=== PATIENT | female | born 1965 | race Caucasian/White ===

== ENCOUNTER 2019-10-14 07:18 | Emergency (ER) | payer BC, OTHER ==
[~2019-10-14] VITALS: Ht 160 cm; Wt 113.4 kg
[2019-10-14 07:28] VITALS: BP 130/89
[2019-10-14 08:04] LABS: Basophils # (auto) 0.1 uL; Basophils % (auto) 1.4 % (0.0-2.0); Eosinophils # (auto) 0.2 uL; Eosinophils % (auto) 3.1 % (0.0-7.0); Hematocrit 38.3 % (36.0-46.0); Hemoglobin 12.8 g/dL (12.2-16.2); Lymphocytes # (auto) 1.8 uL; Lymphocytes % (auto) 25.6 % (10.0-50.0); Mean Corpuscular Hemoglobin 31.5 pg (28.0-32.0); Mean Corpuscular Hgb Conc. 33.5 g/dL (32.0-36.0); Mean Corpuscular Volume 94.2 fL (80.0-100.0); Monocytes # (auto) 0.6 uL; Monocytes % (auto) 8.4 % (0.0-12.0); Neutrophils # (auto) 4.4 uL; Neutrophils % (auto) 61.5 % (37.0-80.0); Platelet Count (auto) 129 10^3/uL (140-450); Red Blood Cells 4.07 10^6/uL (4.0-5.20); Red Cell Distribution Width 17.5 % (11.8-14.3); White Blood Cell 7.1 10^3/uL (4.4-10.8)
[2019-10-14 08:44] LABS: Albumin 2.8 g/dL (3.4-5.0); Anion Gap 7 (5-15); Blood Urea Nitrogen 6 mg/dL (7-18); Carbon Dioxide 26 mmol/L (21-32); Chloride 109 mmol/L (98-107); Glucose 100 mg/dL (74-106); Sodium 142 mmol/L (136-145)
[2019-10-14 08:50] LABS: Alanine Aminotransferase 68 U/L (13-56); Alkaline Phosphatase 205 U/L (45-117); Aspartate Aminotransferase 129 U/L (15-37); BUN/Creatinine Ratio 6.8; Bilirubin, Total 0.6 mg/dL (0.2-1.0); GFR African American 86 mL/min; GFR Non-African American 71 mL/min; Total Protein 7.4 g/dL (6.4-8.2)
== END 2019-10-14 11:44 | disposition left against medical advice (07) ==
LOC: EDBD 07:18 → ER 07:18
DX: F41.9 Anxiety disorder, unspecified (principal); F17.210 Nicotine dependence, cigarettes, uncomplicated
CPT/HCPCS: 36415; 80053; 84484; 85025; 93005

== ENCOUNTER 2020-06-20 14:22 | Inpatient (IN) | payer BC ==
[~2020-06-20] VITALS: Ht 182.9 cm; Wt 140.7 kg
[2020-06-20 16:25] LABS: Hematocrit 37.9 % (36.0-46.0); Hemoglobin 12.7 g/dL (12.2-16.2); Red Blood Cells 3.64 10^6/uL (4.0-5.20)
[2020-06-20 16:27] LABS: Mean Corpuscular Hgb Conc. 33.6 g/dL (32.0-36.0); Mean Corpuscular Volume 104.3 fL (80.0-100.0); Platelet Count (auto) 205 10^3/uL (140-450); White Blood Cell 13.2 10^3/uL (4.4-10.8)
[2020-06-20 16:29] LABS: Red Cell Distribution Width 22.2 % (11.8-14.3)
[2020-06-20 16:31] LABS: Basophils % (manual) 0 (0.0-2.0); Blast Cells 0; Metamyelocytes % 0; Myelocytes % 0; Promyelocytes % 0; Reactive Lymphocytes 0
[2020-06-20 16:50] LABS: Albumin 1.9 g/dL (3.4-5.0); Anion Gap 13 (5-15); Blood Alcohol < 3.0 mg/dL (0-5); Blood Urea Nitrogen 13 mg/dL (7-18); Calcium 8.3 mg/dL (8.5-10.1); Carbon Dioxide 22 mmol/L (21-32); Chloride 95 mmol/L (98-107); Glucose 75 mg/dL (74-106); Sodium 130 mmol/L (136-145)
[2020-06-20 16:54] LABS: Alanine Aminotransferase 112 U/L (13-56); Alkaline Phosphatase 419 U/L (45-117); Aspartate Aminotransferase 306 U/L (15-37); BUN/Creatinine Ratio 10.3; Bilirubin, Total 20.8 mg/dL (0.2-1.0); GFR African American 57 mL/min; GFR Non-African American 47 mL/min; Total Protein 6.2 g/dL (6.4-8.2)
[2020-06-20 17:01] LABS: Potassium 2.9 mmol/L (3.5-5.1)
[2020-06-20] MEDS ORDERED: POTASSIUM EFFERVESENT TAB 25 MEQ PO ONE (17:30)
[2020-06-20 18:12] LABS: Band Neutrophils % (manual) 3; Eosinophils % (manual) 3 (0-7); Lymphocytes % (manual) 7 (10.0-50.0); Monocytes % (manual) 4 (0-12)
[2020-06-20] MEDS ORDERED: ONDANSETRON HCL 4 MG/2 ML VIAL IV ONE (23:30)
[2020-06-20] MEDS ORDERED: MORPHINE SULFATE 4 MG/ML SYR/VIAL IV ONE (23:30)
[2020-06-20] MEDS ORDERED: SODIUM CHLORIDE 0.9% 1,000 ML IV ONE (23:30)
[2020-06-20 23:36] LABS: Amylase 26 U/L (25-115); Lipase 181 U/L (73-393)
[2020-06-21] MEDS ORDERED: NITROGLYCERIN 0.4 MG SL TAB SL PRN (03:15)
[2020-06-21] MEDS ORDERED: DOCUSATE SOD 100 MG CAP PO PRN (03:15)
[2020-06-21] MEDS: SODIUM CHLORIDE 0.9% 1,000 ML IV SCH ×2 (03:25→21:11)
[2020-06-21] MEDS: cefTRIAXone 1GM/50ML D5W 50 ML IV SCH ×2 (03:43→09:18)
[2020-06-21] MEDS: MORPHINE SULF INJ 2 MG/ML SYRINGE 1ML IV PRN (03:45)
[2020-06-21] MEDS: ONDANSETRON HCL 4 MG/2 ML VIAL IV PRN (03:46)
--- NOTE | 2020-06-21 04:25 | NUR ---
pt got to floor from ED via bed
[2020-06-21 04:48] LABS: Basophils # (auto) 0.1 10 ^3/uL (0-0.2); Basophils % (auto) 0.6 % (0.0-2.0); Eosinophils # (auto) 0.1 10 ^3/uL (0-0.8); Eosinophils % (auto) 0.9 % (0.0-7.0); Hematocrit 35.2 % (36.0-46.0); Hemoglobin 11.9 g/dL (12.2-16.2); Lymphocytes # (auto) 1.1 10 ^3/uL (0.4-5.4); Lymphocytes % (auto) 7.4 % (10.0-50.0); Mean Corpuscular Hemoglobin 35.2 pg (28.0-32.0); Mean Corpuscular Hgb Conc. 33.9 g/dL (32.0-36.0); Monocytes # (auto) 0.9 10 ^3/uL (0-1.3); Monocytes % (auto) 6.2 % (0.0-12.0); Neutrophils # (auto) 12.8 10 ^3/uL (1.6-8.6); Neutrophils % (auto) 84.9 % (37.0-80.0); Nucleated Red Blood Cells % 0.6 %; Platelet Count (auto) 195 10^3/uL (140-450); Red Blood Cells 3.38 10^6/uL (4.0-5.20); White Blood Cell 15.1 10^3/uL (4.4-10.8)
[2020-06-21 04:49] VITALS: BP 110/72
[2020-06-21 04:49] LABS: Red Cell Distribution Width 21.8 % (11.8-14.3)
[2020-06-21 05:08] VITALS: BP 110/72
[2020-06-21 05:09] LABS: Albumin 1.8 g/dL (3.4-5.0); Calcium 7.9 mg/dL (8.5-10.1); Potassium 3.5 mmol/L (3.5-5.1)
[2020-06-21 05:13] LABS: BUN/Creatinine Ratio 9.2; Total Protein 5.6 g/dL (6.4-8.2)
[2020-06-21] MEDS: metroNIDAZOLE 500MG/100ML 100 ML IV SCH ×3 (05:32→21:12)
--- NOTE | 2020-06-21 06:28 | NUR ---
spoke with hospitalist regarding pt's pain med, new order received.
--- NOTE | 2020-06-21 07:26 | NUR ---
closing note endorsed care to day RN, no sign of pain/distress at this time
[2020-06-21 09:00] VITALS: BP 107/61
[2020-06-21] MEDS: ENOXAPARIN SOD 40 MG/0.4 ML SYRINGE SC SCH (09:17)
[2020-06-21] MEDS ORDERED: PANTOPRAZOLE 40 MG/10 ML VIAL INJ IV SCH (10:00)
[2020-06-21 15:09] VITALS: BP 107/61
[2020-06-21 17:00] VITALS: BP 117/58
--- NOTE | 2020-06-21 19:30 | NUR ---
Opening Shift Note Assumed care of patient,resting in bed with eyes closed. No S/S of distress/SOB or pain. Will continue to monitor for changes Q1hr and PRN.
[2020-06-21] MEDS: PANTOPRAZOLE 40 MG/10 ML VIAL INJ IV SCH (21:12)
[2020-06-21 22:00] VITALS: BP 121/74
[2020-06-22 05:00] VITALS: BP 116/70
[2020-06-22] MEDS: metroNIDAZOLE 500MG/100ML 100 ML IV SCH ×3 (05:27→21:22)
[2020-06-22] MEDS: MORPHINE SULF INJ 2 MG/ML SYRINGE 1ML IV PRN ×3 (05:28→21:23)
[2020-06-22 05:29] LABS: Hematocrit 30.8 % (36.0-46.0); Hemoglobin 10.5 g/dL (12.2-16.2); Mean Corpuscular Hemoglobin 35.4 pg (28.0-32.0); Mean Corpuscular Hgb Conc. 34.2 g/dL (32.0-36.0); Mean Corpuscular Volume 103.4 fL (80.0-100.0); Platelet Count (auto) 180 10^3/uL (140-450); Red Blood Cells 2.97 10^6/uL (4.0-5.20); White Blood Cell 12.5 10^3/uL (4.4-10.8)
[2020-06-22 05:31] LABS: Red Cell Distribution Width 21.4 % (11.8-14.3)
[2020-06-22 05:33] LABS: Basophils % (manual) 0 (0.0-2.0); Blast Cells 0; Metamyelocytes % 0; Myelocytes % 0; Promyelocytes % 0; Reactive Lymphocytes 0
[2020-06-22 05:37] LABS: INR 1.36 (0.9-1.15)
[2020-06-22 05:50] LABS: Albumin 1.7 g/dL (3.4-5.0); Calcium 7.4 mg/dL (8.5-10.1)
[2020-06-22 05:54] LABS: BUN/Creatinine Ratio 9.6; Bilirubin, Total 21.2 mg/dL (0.2-1.0)
--- NOTE | 2020-06-22 06:52 | NUR ---
pt developed skin tears on her buttocks, pictures taken, for wound consult
--- NOTE | 2020-06-22 07:30 | NUR ---
closing note endorsed care to day RN, no distress/ pain noted at this time
[2020-06-22 08:37] VITALS: BP 105/61
[2020-06-22 09:05] LABS: Band Neutrophils % (manual) 4; Eosinophils % (manual) 1 (0-7); Lymphocytes % (manual) 11 (10.0-50.0); Monocytes % (manual) 1 (0-12)
[2020-06-22] MEDS ORDERED: cefTRIAXone 1GM/50ML D5W 50 ML IV ONE (10:30)
[2020-06-22] MEDS: PANTOPRAZOLE 40 MG/10 ML VIAL INJ IV SCH ×2 (10:32→21:23)
[2020-06-22] MEDS: ENOXAPARIN SOD 40 MG/0.4 ML SYRINGE SC SCH (10:33)
--- NOTE | 2020-06-22 11:15 | NUR ---
WOUND CARE NOTE: WOUND CARE IN TO SEE PATIENT PER WOUND CARE REQUEST. PATIENT ADMITTED TO [facility] FOR ACUTE ABDOMINAL PAIN. BEDSIDE NURSE NOTED SKIN INTEGRITY ISSUE UPON ADMISSION. PHOTOGRAPH TAKEN AT THAT TIME FOR REFERENCE. PATIENT DOMINGO SCORE IS 18. PATIENT NOTED TO HAVE SKIN TEARS BILATERAL BUTTOCKS. ZGUARD MOISTURE BARRIER CREAM APPLIED TO BILATERAL BUTTOCKS. RECOMMEND: FREQUENT Q2HOUR REPOSITIONING CONDITION PERMITS. FREQUENT REDISTRIBUTE PRESSURE UTILIZING PILLOWS AND WEDGES. BID/PRN APPLICATION OF MOISTURE BARRIER CREAM. SKIN/WOUND CARE PLAN. CONTINUED MONITORING BY WOUND CARE TEAM. Addendum: 06/22/20 at 1507 by SHELBIE MARVIN RN RN Amended: Links added.
[2020-06-22] MEDS ORDERED: POTASSIUM CHLORIDE 8 MEQ TAB PO ONE (11:45)
[2020-06-22] MEDS: Ensure HIGH Protein Chocolate 8oz Bottle PO SCH ×2 (12:00→18:00)
--- NOTE | 2020-06-22 12:05 | NUR ---
Spoke to patient's daughter after password provided, updated on POC. Cont care
[2020-06-22] MEDS: SODIUM CHLORIDE 0.9% 1,000 ML IV SCH (12:35)
[2020-06-22 13:06] VITALS: BP 115/64
[2020-06-22 13:14] LABS: Hepatitis B Surface Antibody Negative
[2020-06-22 13:43] LABS: Hepatitis A Total Antibody Negative
[2020-06-22 15:28] LABS: Hepatitis C Antibody Negative (Negative)
--- NOTE | 2020-06-22 15:53 | NUR ---
Assessment Regarding social service consult for heavy ETOH use. Patient refused resources stating she stop drinking alcohol 3 weeks ago. Patient is a 54-year-old female who is alert and oriented. Prior to admission patient lived with family and functioned independently.Per patient she does not have any need for medical equipment now. Per patient she will return home to her prior living arrangements post discharge and family will transport home. Patient verbalize understanding d/c plan. Addendum: 06/22/20 at 1556 by CAITLIN ALANIS Amended: Links added.
[2020-06-22 16:37] VITALS: BP 105/59
[2020-06-22 18:43] LABS: Calcium 7.8 mg/dL (8.5-10.1); Potassium 3.2 mmol/L (3.5-5.1)
[2020-06-22 18:45] LABS: BUN/Creatinine Ratio 10.2
--- NOTE | 2020-06-22 20:35 | NUR ---
ULTRASOUND AT BEDSIDE
[2020-06-22 22:00] VITALS: BP 124/71
--- NOTE | 2020-06-23 02:38 | NUR ---
PATIENT COMFORTABLE IN BED, NO COMPLAINTS.
[2020-06-23 05:00] VITALS: BP 106/66
[2020-06-23 05:58] LABS: Hematocrit 30.1 % (36.0-46.0); Hemoglobin 10.3 g/dL (12.2-16.2); Mean Corpuscular Hemoglobin 35.5 pg (28.0-32.0); Mean Corpuscular Hgb Conc. 34.3 g/dL (32.0-36.0); Mean Corpuscular Volume 103.5 fL (80.0-100.0); Platelet Count (auto) 178 10^3/uL (140-450); Red Blood Cells 2.91 10^6/uL (4.0-5.20)
[2020-06-23 06:09] LABS: Red Cell Distribution Width 21.9 % (11.8-14.3)
[2020-06-23 06:10] LABS: Basophils % (manual) 0 (0.0-2.0); Blast Cells 0; Myelocytes % 0; Promyelocytes % 0; Reactive Lymphocytes 0
[2020-06-23 06:12] LABS: Albumin 1.7 g/dL (3.4-5.0); Calcium 7.5 mg/dL (8.5-10.1)
[2020-06-23 06:16] LABS: BUN/Creatinine Ratio 11.8; Bilirubin, Total 22.5 mg/dL (0.2-1.0); Total Protein 5.1 g/dL (6.4-8.2)
[2020-06-23 06:20] LABS: Potassium 2.9 mmol/L (3.5-5.1)
[2020-06-23] MEDS: SODIUM CHLORIDE 0.9% 1,000 ML IV SCH ×2 (06:32→12:00)
--- NOTE | 2020-06-23 06:38 | NUR ---
PAGED HOSPITALIST CRITICAL POTASSIUM LAB VALUE OF 2.9
[2020-06-23] MEDS: metroNIDAZOLE 500MG/100ML 100 ML IV SCH (06:56)
[2020-06-23 07:03] LABS: Band Neutrophils % (manual) 1; Eosinophils % (manual) 8 (0-7); Lymphocytes % (manual) 12 (10.0-50.0); Metamyelocytes % 1; Monocytes % (manual) 4 (0-12)
[2020-06-23] MEDS ORDERED: POTASSIUM CHL 20 Meq TABLET PO ONE ×2 (07:15→13:15)
--- NOTE | 2020-06-23 07:20 | NUR ---
CLOSING NOTE- NOC SHIFT ENDORSED PATIENT CARE TO DAY SHIFT NURSE ASHLEY SUAREZ. PATIENT IS RESTING COMFORTABLE. NO S/SX OF DISTRESS, SOB OR PAIN.
[2020-06-23] MEDS: Ensure HIGH Protein Chocolate 8oz Bottle PO SCH ×3 (08:00→18:00)
[2020-06-23 09:00] VITALS: BP 118/69
[2020-06-23] MEDS: PANTOPRAZOLE 40 MG/10 ML VIAL INJ IV SCH ×2 (09:20→23:09)
[2020-06-23] MEDS: cefTRIAXone 1GM/50ML D5W 50 ML IV SCH (09:21)
[2020-06-23] MEDS: ENOXAPARIN SOD 40 MG/0.4 ML SYRINGE SC SCH (09:21)
--- NOTE | 2020-06-23 09:26 | NUR ---
GI at bedside Dr. Barrera at bedside. Aware of patients status and abdominal pain. New orders received. Will continue to monitor.
[2020-06-23] MEDS: MORPHINE SULF INJ 2 MG/ML SYRINGE 1ML IV PRN (09:46)
--- NOTE | 2020-06-23 09:46 | NUR ---
Refused to turn Assessing patients skin tear to the sacrum. Patient fully turned to her side for a brief moment. Patient is refusing to stay turned to relieve pressure, states "I'm not going to turn, I'm not going to be uncomfortable." Patient educated on importance of turning q2 hours, skin care and wound prevention. Patient verbalized understanding but continues to refuse. Will continue to monitor.
--- NOTE | 2020-06-23 11:26 | NUR ---
at bedside. Dr. Lane at bedside, aware of patients status including the pitting edema and abnormal labs. New orders received, will carry out. Will continue to monitor.
[2020-06-23 13:00] VITALS: BP 117/70
[2020-06-23] MEDS ORDERED: THIAMINE HCL 100 MG TAB PO ONE (13:15)
[2020-06-23] MEDS ORDERED: FUROSEMIDE 40 MG/4 ML VIAL IV ONE (13:15)
[2020-06-23] MEDS ORDERED: MULTIPLE VITAMINS W/ MINERALS TAB PO ONE (13:15)
[2020-06-23 17:00] VITALS: BP 111/68
--- NOTE | 2020-06-23 19:15 | NUR ---
Opening shift note Assumed care of patient from day shift RNPatito. Patient A&Ox4, respirations even and non-labored at this time. STEAM BLOCKER bedside, assisted with turning/cleaning/bathing patient and linen/gown change. Patient repositioned for comfort. Discussed POC, ambulating, skin care/risks of not using the BSC, and to call for assistance in which the patient verbalized understanding. Bed in lowest locked position with 2 side rails up, call light within reach, safety precautions in place. Will continue to monitor Q1hr and PRN.
[2020-06-23 22:00] VITALS: BP 110/66
--- NOTE | 2020-06-23 23:00 | NUR ---
Patient incontinent of urine Patient stated that she was unable to use the call light in time. Bathed and changed linens, Z-guard applied to irritated skin on buttocks. Discussed risks/benefits of a Still catheter with the patient who stated that she will attempt to call for a bedpan. Patient further stated that she will attempt to use the BSC and ambulate the following day.
[2020-06-24 05:00] VITALS: BP 112/68
[2020-06-24 06:07] LABS: Hemoglobin 10.5 g/dL (12.2-16.2); Platelet Count (auto) 182 10^3/uL (140-450)
[2020-06-24 06:10] LABS: Hematocrit 29.8 % (36.0-46.0); Mean Corpuscular Hemoglobin 35.9 pg (28.0-32.0); Mean Corpuscular Hgb Conc. 35.1 g/dL (32.0-36.0); Mean Corpuscular Volume 102.1 fL (80.0-100.0); Red Blood Cells 2.92 10^6/uL (4.0-5.20); White Blood Cell 9.4 10^3/uL (4.4-10.8)
--- NOTE | 2020-06-24 06:26 | NUR ---
Patient resting Respirations even and non-labored without s/s of distress at this time.
[2020-06-24 06:38] LABS: Albumin 1.6 g/dL (3.4-5.0); BUN/Creatinine Ratio 14.3; Bilirubin, Direct 19.1 mg/dL (0-0.2); Bilirubin, Total 22.8 mg/dL (0.2-1.0); Calcium 7.6 mg/dL (8.5-10.1); Magnesium 2.3 mg/dL (1.6-2.6)
[2020-06-24 06:41] LABS: Potassium 2.8 mmol/L (3.5-5.1)
--- NOTE | 2020-06-24 06:43 | NUR ---
Critical lab Potassium 2.8 Will notify hospitalist.
[2020-06-24 06:44] LABS: Red Cell Distribution Width 21.6 % (11.8-14.3)
[2020-06-24 06:45] LABS: Basophils % (manual) 0 (0.0-2.0); Blast Cells 0; Promyelocytes % 0; Reactive Lymphocytes 0
--- NOTE | 2020-06-24 06:47 | NUR ---
Hospitalist returned call Order: Klor-con 40 Meq PO, one time Order entered.
[2020-06-24] MEDS ORDERED: POTASSIUM CHL 20 Meq TABLET PO ONE ×2 (07:00→12:15)
[2020-06-24 07:42] LABS: Band Neutrophils % (manual) 2; Eosinophils % (manual) 6 (0-7); Lymphocytes % (manual) 7 (10.0-50.0); Metamyelocytes % 3; Monocytes % (manual) 4 (0-12); Myelocytes % 1
[2020-06-24 07:42] LABS: Hepatitis B Surface Antigen Negative (Negative)
[2020-06-24 07:43] LABS: Hepatitis B Core Total AB Negative
[2020-06-24] MEDS: Ensure HIGH Protein Chocolate 8oz Bottle PO SCH ×3 (08:00→18:00)
--- NOTE | 2020-06-24 08:00 | NUR ---
Opening Shift Note Assumed care of patient, awake and alert. Bed set to lowest position side rails up x2 and call light placed within the patient's reach. No S/S of distress/SOB or pain. Instructed on POC and to call for assist PRN, will continue to monitor for changes Q1hr and PRN.
[2020-06-24 09:00] VITALS: BP 110/68
--- NOTE | 2020-06-24 09:00 | NUR ---
Urine Sample Urine sample sent to lab. Pending results.
[2020-06-24 09:41] LABS: Urine Amorphous Crystal MOD /hpf (None Seen); Urine Bacteria MOD /hpf (None Seen); Urine Blood 3+ /uL (Negative); Urine Specific Gravity 1.016 (1.001-1.035); Urine WBC 309 /hpf (0 - 5)
[2020-06-24] MEDS: ENOXAPARIN SOD 40 MG/0.4 ML SYRINGE SC SCH (09:46)
[2020-06-24] MEDS: THIAMINE HCL 100 MG TAB PO SCH (09:46)
[2020-06-24] MEDS: MULTIPLE VITAMINS W/ MINERALS TAB PO SCH (09:47)
[2020-06-24] MEDS: PANTOPRAZOLE 40 MG/10 ML VIAL INJ IV SCH ×2 (09:48→22:04)
[2020-06-24] MEDS: SODIUM CHLORIDE 0.9% 1,000 ML IV SCH (09:48)
--- NOTE | 2020-06-24 10:57 | NUR ---
Pt. Refusing to Reposition Pt. was educated on the importance of repositioning every 2 hours. Pt. verbalized understanding and refused to reposition. Addendum: 06/24/20 at 1059 by ANALIA HUNTER RN RN Amended: Links added.
--- NOTE | 2020-06-24 12:08 | NUR ---
at bedside MD Lane at bedside, aware of patient's status including labs, vs, bp, edema. New orders received to dc IV fluids, klor con 20meq po once now. MD aware patient has been refusing turning. Will cont to monitor
[2020-06-24 13:00] VITALS: BP 108/59
--- NOTE | 2020-06-24 15:13 | NUR ---
ss consult Per ss consult needs pcp. Sasha Alcocer to see patient today for PCP information. Addendum: 06/24/20 at 1514 by Sasha ALANIS Amended: Links added.
--- NOTE | 2020-06-24 16:34 | NUR ---
Patient has been having multiple incontinent episodes of urine throughout the day. Pt requesting to be changed again at this time. Patient able to turned for a brief moment to be cleaned but goes back to laying completely. Skin tear to sacrum is noted worsening and small bleeding noted from tear at this time. Zguard applied. Patient encouraged, again, to turn and repositioned q2hr and prn but she continues to refuse all day despite knowledge of skin breakdown and multiple efforts to try to get pressure areas off loaded. Patient back laying on her back and refuses to have pressure areas off loaded on pillows. Cont care, admission discharge rnmaria del carmen Padilla made aware.
[2020-06-24 17:00] VITALS: BP 112/69
--- NOTE | 2020-06-24 17:00 | NUR ---
Attempted to start new IV due to current IV was inserted 06/20 but after multiple failed attempts pt refusing at this time. Cont current IV at this time, flushed and is patent.
--- NOTE | 2020-06-24 18:45 | NUR ---
Partial linen changed, pt incontinent of urine. Zguard applied to sacrum. Pt continues to refuse turning despite education given on skin and wound care. No bleeding noted to sacral tear at this time. Will endorse care to oncoming rn.
--- NOTE | 2020-06-24 19:01 | NUR ---
Patient care endorsed to Kinsey joyce. Patient laying supine in bed no acute distress or sob noted. Call light within reach.
[2020-06-24 22:00] VITALS: BP 114/66
[2020-06-25 05:00] VITALS: BP 121/67
[2020-06-25 07:17] LABS: Hemoglobin 11.2 g/dL (12.2-16.2); Platelet Count (auto) 185 10^3/uL (140-450)
[2020-06-25 07:21] LABS: Hematocrit 32.5 % (36.0-46.0); Mean Corpuscular Hemoglobin 35.3 pg (28.0-32.0); Mean Corpuscular Hgb Conc. 34.3 g/dL (32.0-36.0); Mean Corpuscular Volume 102.9 fL (80.0-100.0); Red Blood Cells 3.16 10^6/uL (4.0-5.20); White Blood Cell 9.7 10^3/uL (4.4-10.8)
[2020-06-25 07:34] LABS: Red Cell Distribution Width 21.9 % (11.8-14.3)
[2020-06-25 07:35] LABS: Basophils % (manual) 0 (0.0-2.0); Blast Cells 0; Myelocytes % 0; Promyelocytes % 0; Reactive Lymphocytes 0
[2020-06-25 07:36] LABS: Albumin 1.6 g/dL (3.4-5.0)
[2020-06-25 07:40] LABS: BUN/Creatinine Ratio 16.1; Bilirubin, Total 23.6 mg/dL (0.2-1.0); Total Protein 5.2 g/dL (6.4-8.2)
[2020-06-25 07:42] LABS: Cholesterol 107 mg/dL (< 200); HDL Cholesterol 12 mg/dL (40-59); LDL Cholesterol 114 mg/dL (< 100); Triglycerides 298 mg/dL (< 150)
[2020-06-25 07:55] LABS: Potassium 2.9 mmol/L (3.5-5.1)
[2020-06-25] MEDS: MULTIPLE VITAMINS W/ MINERALS TAB PO SCH (08:13)
[2020-06-25] MEDS: ENOXAPARIN SOD 40 MG/0.4 ML SYRINGE SC SCH (08:14)
[2020-06-25] MEDS: THIAMINE HCL 100 MG TAB PO SCH (08:14)
[2020-06-25 08:15] LABS: Band Neutrophils % (manual) 2; Eosinophils % (manual) 5 (0-7); Lymphocytes % (manual) 7 (10.0-50.0); Metamyelocytes % 1; Monocytes % (manual) 7 (0-12)
[2020-06-25] MEDS: PANTOPRAZOLE 40 MG/10 ML VIAL INJ IV SCH ×2 (08:15→21:42)
[2020-06-25] MEDS: Ensure HIGH Protein Chocolate 8oz Bottle PO SCH ×3 (08:15→18:45)
[2020-06-25] MEDS: MORPHINE SULF INJ 2 MG/ML SYRINGE 1ML IV PRN ×3 (08:24→21:44)
--- NOTE | 2020-06-25 08:36 | NUR ---
CRITICAL POTASSIUM 2.[address] BILLY
[2020-06-25 09:00] VITALS: BP 122/74
[2020-06-25] MEDS ORDERED: POTASSIUM CHL 20 Meq TABLET PO ONE (11:15)
--- NOTE | 2020-06-25 11:33 | NUR ---
new order for 20 meq potassium
[2020-06-25 13:00] VITALS: BP 109/72
[2020-06-25] MEDS ORDERED: SOD CHL 0.9%/ KCL 20MEQ 1,000 ML IV SCH (13:15)
[2020-06-25 14:07] LABS: INR 1.49 (0.9-1.15)
--- NOTE | 2020-06-25 14:30 | NUR ---
dr quintana bedside new orders to be carried out
--- NOTE | 2020-06-25 16:20 | NUR ---
Trevizo catheter insertion Patient assessed and determined to be in need of trevizo catheter 300 CC DARK NEELAM URINE DRAINED. Order obtained from MD. Patient educated on catheter and reason for insertion. All questions answered. Trevizo catheter 16 guage Nepali inserted with clean sterile technique. Patient tolerated well.
--- NOTE | 2020-06-25 16:21 | NUR ---
URINE SAMPLE SENT TO LAB PER DR PLATT ORDER
[2020-06-25] MEDS: POTASSIUM EFFERVESENT TAB 25 MEQ GT SCH ×2 (16:29→23:30)
[2020-06-25] MEDS: DOPamine 1600MCG/ML D5W 250 ML IV SCH (16:32)
[2020-06-25 16:39] LABS: Protein, Urine 56.3 mg/dL (0.0-11.9)
[2020-06-25 16:44] LABS: Creatinine, Urine 90 mg/dL (30.0-125.0); Sodium Urine 20 mmol/L (40-220)
[2020-06-25 16:59] LABS: % Iron Saturation 88.6 % (15-50)
[2020-06-25 17:00] VITALS: BP 122/62
[2020-06-25] MEDS: OCTREOTIDE ACETATE 100 MCG/ML VL SUBCUT SCH ×2 (18:44→21:43)
[2020-06-25] MEDS: SOD CHL 0.9%/ KCL 20MEQ 1,000 ML IV SCH (18:44)
--- NOTE | 2020-06-25 18:45 | NUR ---
IV insertion IV access obtained, via clean sterile technique by inserting 22 gauge catheter at after LEFT WRIST attempt(s). IV secured properly. No trauma to site. Patient tolerated well. NOTE:
--- NOTE | 2020-06-25 20:00 | NUR ---
ASSUMED CARE, PT. AWAKE, NOT IN DISTRESS.
[2020-06-25 22:00] VITALS: BP 121/71
--- NOTE | 2020-06-25 22:00 | NUR ---
pt. t- 100.5, cooling measures applied, blanket removed, to keep monitor. Addendum: 06/25/20 at 2328 by Theresa Genao RN above note, not on this pt.
--- NOTE | 2020-06-25 22:47 | NUR ---
pt. t- 98.2 Addendum: 06/25/20 at 2328 by Theresa Genao RN above note. not in this pt.
[2020-06-26] VITALS (9 sets, daily range): BP systolic 76–124; BP diastolic 43–79
[2020-06-26] MEDS: SOD CHL 0.9%/ KCL 20MEQ 1,000 ML IV SCH (04:18)
[2020-06-26] MEDS: OCTREOTIDE ACETATE 100 MCG/ML VL SUBCUT SCH ×3 (05:40→21:26)
[2020-06-26 06:19] LABS: Albumin 1.7 g/dL (3.4-5.0); Calcium 8.5 mg/dL (8.5-10.1); Magnesium 2.2 mg/dL (1.6-2.6)
[2020-06-26 06:32] LABS: BUN/Creatinine Ratio 16.9; Bilirubin, Direct 20.7 mg/dL (0-0.2); Bilirubin, Total 24.7 mg/dL (0.2-1.0); Total Protein 5.5 g/dL (6.4-8.2)
--- NOTE | 2020-06-26 07:30 | NUR ---
Opening Shift Note Assumed care of patient, awake and alert. No S/S of distress/SOB. Patient is NPO awaiting liver biopsy this morning. Patient states pain at left wrist IV site, + swelling, - redness, patient states, "burning senstaiton", IV rate lowered, elevated left arm, will continue to monitor IV site. Patient declined new IV site insertion. Instructed on POC and to call for assist PRN, will continue to monitor for changes Q1hr and PRN. Bed is locked and in lowest position. Call light within reach.
[2020-06-26] MEDS: Ensure HIGH Protein Chocolate 8oz Bottle PO SCH ×3 (08:00→17:39)
[2020-06-26] MEDS ORDERED: LIDOCAINE 2%HCL (LOCAL ANESTH.) INJ 20ML MDV ONE (09:27)
[2020-06-26] MEDS ORDERED: GELATIN 1 SPONGE SIZE 100 TOP ONE (09:27)
[2020-06-26] MEDS ORDERED: SODIUM PHOSPHATES 40 MEQ in D5W 5% 250 ML IV ONE (09:45)
[2020-06-26] MEDS: ENOXAPARIN SOD 40 MG/0.4 ML SYRINGE SC SCH (10:00)
[2020-06-26] MEDS ORDERED: fentaNYL CITRATE 100 MCG/2 ML VL IV ONE (10:00)
[2020-06-26] MEDS ORDERED: MIDAZOLAM HCL 1MG/1ML-2 ML VIAL IV ONE (10:00)
--- NOTE | 2020-06-26 10:00 | NUR ---
PATIENT WAS TRANSPORTED VIA [facility] FOR LIVER BIOPSY. PATIENT WAS SALINE LOCKED FROM THE DOPAMINE DRIP. MEDICAL RECORDS AUDITOR AWARE OF DOPAMINE DRIP. WILL AWAIT PATIENT RETURN.
--- NOTE | 2020-06-26 11:00 | NUR ---
PATIENT UNDERWENT CT GUIDED LIVER BIOPSY PER DR LYNN. SEE MODERATE SEDATION RECORD FOR MEDICATIONS GIVEN. SEE FLOW SHEET FOR VITAL SIGNS. SAO2 DECREASED TO 87% FROM 95% ON ROOM AIR - O2 APPLIED AT 2L PER NC - SAO2 94% WITH O2 ON. PATIENT TOLERATED PROCEDURE WELL. BANDAID APPLIED TO RUQ ABD WITHOUT BLEEDING/HEMATOMA NOTED. PATIENT APPEARS STABLE TO RETURN TO ROOM WITH O2 ON @ 2L PER NC. REPORT GIVEN TO IRENE SUAREZ COVERING FOR JUSTICE SUAREZ.
--- NOTE | 2020-06-26 11:28 | NUR ---
Nutrition Assessment Est energy needs 1491-4498 kcal (11-14 kcal/kg BW 145.9kg) Est protein needs 73-87g (1-1.2g/kg IBW 73kg) Will monitor and reassess prn. Addendum: 06/26/20 at [address] Amended: Links added.
--- NOTE | 2020-06-26 12:00 | NUR ---
MEDICATION HELD MEDICATION LOVENOX HELD DUE TO PATIENT HAVING VAGINAL BLEEDING AND LIVER BIOPSY. PATIENT WILL BE CONTINUED TO BE MONITORED.
[2020-06-26] MEDS: THIAMINE HCL 100 MG TAB PO SCH (12:06)
[2020-06-26] MEDS: PANTOPRAZOLE 40 MG/10 ML VIAL INJ IV SCH ×2 (12:06→21:26)
[2020-06-26] MEDS: MULTIPLE VITAMINS W/ MINERALS TAB PO SCH (12:07)
--- NOTE | 2020-06-26 12:24 | NUR ---
IV removal IV DC'd ON LEFT WRIST with clean sterile technique, catheter fully intact. Pressure dressing applied to site. Patient tolerated well.
[2020-06-26] MEDS: DOPamine 1600MCG/ML D5W 250 ML IV SCH (12:45)
--- NOTE | 2020-06-26 13:10 | NUR ---
PATIENT REFUSED TO WORK WITH PHYSICAL THERAPY. PATIENT INFORMED OF BENEFITS OF PHYSICAL THERAPY AND RISK OF BEING ON BEDREST. PATIENT DECLINED PHYSICAL THERAPY. WILL CONTINUE TO MONITOR PATIENT.
--- NOTE | 2020-06-26 14:03 | NUR ---
PATIENT REFUSED PT. DANIELA RENDON WAS NOTIFIED. Addendum: 06/26/20 at 1404 by GILLES ASHTON PTT Amended: Links added.
[2020-06-26] MEDS: MORPHINE SULF INJ 2 MG/ML SYRINGE 1ML IV PRN ×2 (14:12→21:27)
--- NOTE | 2020-06-26 15:50 | NUR ---
OBLESLY VIRAMONTES AT BEDSIDE FOR CONSULTATION REGARDING VAGINAL BLEEDING. DR. VIRAMONTES EXAMINED PATIENT AND PATIENT DID NOT COOPERATE WITH EXAM. PER DR. VIRAMONTES PATIENT WILL FOLLOW UP OUTPATIENT.
--- NOTE | 2020-06-26 18:58 | NUR ---
Midline Placement: Patient educated on need for midline placement. All risks and benefits explained and all questions and concerns addresses prior to procedure. 18g/10cm midline inserted via RIGHTBASILIC vein using Ultrasound. Sterile technique utilized. Blood return obtained from THE lumen and flushed easily with NS using proper technique. Midline secured with saline lock; biodisc and occlusive dressing applied. Primary RN notified. Midline lot # [id number].
[2020-06-26] MEDS: SODIUM CHLORIDE 0.9% 1,000 ML IV SCH ×2 (19:26→19:34)
--- NOTE | 2020-06-26 19:50 | NUR ---
Opening Shift Note Assumed care of patient, awake and alert. No S/S of distress/SOB or pain. Instructed on POC and to call for assist PRN. Bed in lowest locked position, call light within reach, side rails up x2, fall precautions in place. Will continue to monitor for changes Q1hr and PRN.
[2020-06-27] VITALS (7 sets, daily range): BP systolic 108–129; BP diastolic 60–69
[2020-06-27] MEDS: SODIUM CHLORIDE 0.9% 1,000 ML IV SCH (05:45)
[2020-06-27] MEDS: MORPHINE SULF INJ 2 MG/ML SYRINGE 1ML IV PRN ×5 (05:52→23:40)
[2020-06-27] MEDS: OCTREOTIDE ACETATE 100 MCG/ML VL SUBCUT SCH ×2 (05:52→14:00)
--- NOTE | 2020-06-27 07:30 | NUR ---
Opening Shift Note Assumed care of patient, awake and alert. No S/S of distress/SOB or pain. Instructed on POC and to call for assist PRN, will continue to monitor for changes Q1hr and PRN. Bed is locked and in lowest position. Call light within reach.
[2020-06-27 07:40] LABS: Albumin 1.5 g/dL (3.4-5.0); Calcium 8.3 mg/dL (8.5-10.1); Potassium 3.2 mmol/L (3.5-5.1)
[2020-06-27 07:52] LABS: Bilirubin, Total 22.4 mg/dL (0.2-1.0); Phosphorus 3.3 mg/dL (2.5-4.90); Total Protein 5.2 g/dL (6.4-8.2)
[2020-06-27] MEDS: Ensure HIGH Protein Chocolate 8oz Bottle PO SCH ×3 (08:00→18:00)
[2020-06-27] MEDS: PANTOPRAZOLE 40 MG/10 ML VIAL INJ IV SCH ×2 (09:50→21:32)
[2020-06-27] MEDS: ENOXAPARIN SOD 40 MG/0.4 ML SYRINGE SC SCH (09:51)
[2020-06-27] MEDS: MULTIPLE VITAMINS W/ MINERALS TAB PO SCH (09:51)
[2020-06-27] MEDS: THIAMINE HCL 100 MG TAB PO SCH (09:51)
--- NOTE | 2020-06-27 11:02 | NUR ---
PT REFUSING TO GET OOB TODAY WITH P.T. ADVISED PATIENT THE BENEFITS OF WORKING WITH P.T. , PT UNDERSTOOD, ADVISED PATIENT WILL CHK BACK LATER TO SEE IF HER STATUS HAS CHANGED FOR WORKING WITH PT
[2020-06-27] MEDS ORDERED: POTASSIUM EFFERVESENT TAB 25 MEQ GT ONE (11:15)
[2020-06-27] MEDS: DOPamine 1600MCG/ML D5W 250 ML IV SCH (11:52)
--- NOTE | 2020-06-27 19:30 | NUR ---
Opening Shift Note Assumed care of patient, awake and alert. No S/S of distress/SOB. Pain management discussed with patient. Instructed on POC and to call for assist PRN, will continue to monitor for changes Q1hr and PRN.
[2020-06-28 05:00] VITALS: BP 122/72
[2020-06-28] MEDS: MORPHINE SULF INJ 2 MG/ML SYRINGE 1ML IV PRN ×2 (05:44→10:19)
[2020-06-28 06:25] LABS: Albumin 1.6 g/dL (3.4-5.0); BUN/Creatinine Ratio 18.3; Calcium 8.4 mg/dL (8.5-10.1); Potassium 3.4 mmol/L (3.5-5.1)
[2020-06-28 06:38] LABS: Bilirubin, Total 23.8 mg/dL (0.2-1.0); Total Protein 5.7 g/dL (6.4-8.2)
--- NOTE | 2020-06-28 07:30 | NUR ---
Opening Shift Note Assumed care of patient, awake and alert. No S/S of distress/SOB. Patient is c/o pain 6/10 abdominal, will follow medication orders. Patient refused to be repositioned. Educated patient on importance of repositioning and working with PT, patient declined. Instructed on POC and to call for assist PRN, will continue to monitor for changes Q1hr and PRN. Bed is locked and in lowest position. Call light within reach.
[2020-06-28] MEDS: Ensure HIGH Protein Chocolate 8oz Bottle PO SCH ×3 (08:00→18:00)
[2020-06-28 08:46] VITALS: BP 123/74
--- NOTE | 2020-06-28 09:00 | NUR ---
PATIENT REFUSED TO BE REPOSITION. EDUCATED PATIENT ON THE IMPORTANCE OF REPOSITIONING, ESPECIALLY TO PREVENTING PRESSURE INJURIES AND BLOOD CLOTS. PATIENT REFUSED TO BE REPOSITIONED. PATIENT PLACED ON INTERMITTENT SCD. PATIENT WILL BE CONTINUED TO BE MONITORED.
[2020-06-28] MEDS ORDERED: POTASSIUM EFFERVESENT TAB 25 MEQ PO ONE ×2 (09:45→18:00)
[2020-06-28] MEDS: ENOXAPARIN SOD 40 MG/0.4 ML SYRINGE SC SCH (10:18)
[2020-06-28] MEDS: PANTOPRAZOLE 40 MG/10 ML VIAL INJ IV SCH ×2 (10:18→22:30)
[2020-06-28] MEDS: MULTIPLE VITAMINS W/ MINERALS TAB PO SCH (10:18)
[2020-06-28] MEDS: THIAMINE HCL 100 MG TAB PO SCH (10:18)
--- NOTE | 2020-06-28 10:30 | NUR ---
PATIENT APPEARS TO BE VERY LETHARGIC, PATIENT IS AOX4 BUT FALLS ASLEEP AFTER EVERY ANSWER. PATIENT RECEIVED PAIN MEDICATION AT 0544AM AND WAS C/O OF ABDOMINAL PAIN. MORPHINE HELD FOR PATIENT DUE TO CHANGE OF CONDITION. DR. LAKHANI WILL BE NOTIFIED. WILL AWAIT NEW ORDERS.
[2020-06-28] MEDS: DOPamine 1600MCG/ML D5W 250 ML IV SCH (11:10)
[2020-06-28 11:24] LABS: Platelet Count (auto) 154 10^3/uL (140-450)
--- NOTE | 2020-06-28 11:24 | NUR ---
PATIENT OFF UNIT IN [facility] FOR CT OF HEAD WITHOUT CONTRAST. PATIENT HAS CHANGE IN MENTAL STATUS. PATIENT WAS SL AND DOPAMINE WAS STOPPED. WILL AWAIT PATIENT RETURN.
[2020-06-28 11:26] LABS: Hematocrit 34.2 % (36.0-46.0); Hemoglobin 11.4 g/dL (12.2-16.2); Mean Corpuscular Hemoglobin 35.1 pg (28.0-32.0); Mean Corpuscular Hgb Conc. 33.4 g/dL (32.0-36.0); Mean Corpuscular Volume 105.1 fL (80.0-100.0); Red Blood Cells 3.26 10^6/uL (4.0-5.20); White Blood Cell 13.4 10^3/uL (4.4-10.8)
[2020-06-28 11:38] LABS: Red Cell Distribution Width 22.6 % (11.8-14.3)
[2020-06-28 11:40] LABS: Basophils % (manual) 0 (0.0-2.0); Blast Cells 0; Promyelocytes % 0; Reactive Lymphocytes 0
[2020-06-28 12:36] LABS: Band Neutrophils % (manual) 3; Eosinophils % (manual) 1 (0-7); Lymphocytes % (manual) 6 (10.0-50.0); Metamyelocytes % 1; Monocytes % (manual) 9 (0-12); Myelocytes % 2
--- NOTE | 2020-06-28 12:45 | NUR ---
PATIENT REFUSED TO BE REPOSITIONED. CAREER TECHNOLOGY TEACHER AND RN PRESENT TO REPOSITION PATIENT DUE TO C/O LOWER BACK PAIN. PATIENT REFUSED X3 REPOSITIONING. PATIENT EDUCATED ON THE RISK OF NOT REPOSITIONING. PATIENT VERBALIZED UNDERSTANDING. WILL TRY AGAIN LATER. PATIENT WILL BE CONTINUED TO BE MONITORED.
[2020-06-28 12:49] VITALS: BP 117/74
--- NOTE | 2020-06-28 12:58 | NUR ---
DR. LAKHANI PAGED DR. LAKHANI REGARDING STAT LAB RESULTS AND PATIENT BEING LETHARGIC. DR. LAKHANI WILL LOOK OVER EMAR AND PUT NEW ORDERS IN FOR PATIENT. WILL AWAIT NEW ORDERS AND WILL CONTINUE TO MONITOR PATIENT.
[2020-06-28] MEDS: OCTREOTIDE ACETATE 100 MCG/ML VL SUBCUT SCH ×3 (14:00→22:31)
[2020-06-28] MEDS ORDERED: FUROSEMIDE 40 MG/4 ML VIAL IV ONE (14:00)
[2020-06-28] MEDS: LACTULOSE 20Gm/30ML SOLN PO SCH (14:29)
[2020-06-28] MEDS: PIPERACILLIN-TAZOB 3.375GM 100 ML IV SCH ×2 (14:29→22:30)
[2020-06-28 16:44] VITALS: BP 92/63
[2020-06-28] MEDS ORDERED: MORPHINE SULF INJ 2 MG/ML SYRINGE 1ML IV PRN (18:00)
--- NOTE | 2020-06-28 19:30 | NUR ---
Pt complaining of pain of 8/10 in abdomen. Pt vital signs taken and BP noted as 85/54. Pt notified that this RN does not feel comfortable administering morphine at this time due to decreased BP. Pt verbalized understanding. Pt given heat pack to abdomen for comfort. Will continue to monitor for changes.
[2020-06-28 22:00] VITALS: BP 89/53
[2020-06-28 23:41] VITALS: BP 91/47
--- NOTE | 2020-06-29 | NUR ---
Pt complaining of pain in bottom but refuses to turn at all. Pt states that every time she moves, she is in pain. This RN explained the risks of not turning and rotating with extensive immobility. Pt verbalized understanding, still refusing to turn.
[2020-06-29 05:00] VITALS: BP 93/53
[2020-06-29] MEDS: PIPERACILLIN-TAZOB 3.375GM 100 ML IV SCH ×3 (06:33→21:39)
[2020-06-29] MEDS: OCTREOTIDE ACETATE 100 MCG/ML VL SUBCUT SCH ×3 (06:33→21:40)
--- NOTE | 2020-06-29 06:39 | NUR ---
PT ALLOWED THIS RN AND AID TO TURN AND CHANGE LINEN AND PERFORM SPONGE BATH. PT EDUCATED ON THE RISKS OF NOT BATHING AND NOT CHANGING PADS. PT VERBALIZED UNDERSTANDING. PT YELLED AND CRIED DURING PROCESS BUT WE WERE ABLE TO COMPLETE. DRY BLOOD NOTED IN PERINEAL AREA. STOOL AND BLOOD CLEANED FROM BOTTOM.
--- NOTE | 2020-06-29 07:30 | NUR ---
Opening Shift Note Assumed care of patient, awake. Patient alert and oriented x 3 to name, , situation. However, patient is having hallucinations. Patient states there is a child running in her room. Patient will fixate on the wall and answer questions with a clenched jaw. Patient is c/o abdominal pain. Pain medication will not be given due to not meeting the parameters for administration. No signs of SOB or chest pain. Patient has SCD in place due to patient refusal to work with PT and turn in bed. Instructed on POC and to call for assist PRN, will continue to monitor for changes Q1hr and PRN. Bed is locked and in lowest position. Call light within reach.
[2020-06-29] MEDS: Ensure HIGH Protein Chocolate 8oz Bottle PO SCH ×3 (08:00→18:00)
[2020-06-29 09:23] VITALS: BP 107/53
--- NOTE | 2020-06-29 09:50 | NUR ---
DR. BURRIS SPOKE TO DR. BURRIS REGARDING PATIENT HALLUCINATIONS, BLOOD PRESSURE TRENDING LOW AND TACHYCARDIA. DR. BURRIS ASKED PATIENT QUESTIONS TO ASSESS MENTAL STATUS PATIENT WAS NOT ABLE TO ANSWER APPROPRIATELY. SPOKE TO DR. BURRIS IN REGARDS TO TRANSFERRING PATIENT TO HIGHER LEVEL OF CARE DUE TO CHANGE IN MENTAL STATUS, BLOOD PRESSURE AND INCREASE IN HEART RATE. WILL AWAIT NEW ORDERS. WILL CONTINUE TO MONITOR PATIENT.
[2020-06-29] MEDS: MULTIPLE VITAMINS W/ MINERALS TAB PO SCH (10:00)
[2020-06-29] MEDS: LACTULOSE 20Gm/30ML SOLN PO SCH (10:00)
--- NOTE | 2020-06-29 10:00 | NUR ---
WOUND CARE NOTE: WOUND CARE IN TO SEE PATIENT FOR SKIN INTEGRITY MONITORING. PATIENT CURRENTLY REFUSING PHYSICAL THERAPY, MEDICATIONS, AND WOUND CARE. PATIENT COMPLAINING OF ABDOMINAL PAIN. PATIENT HAS NEW MENTAL STATUS CHANGE. RECOMMEND: FREQUENT Q2HOUR REPOSITIONING CONDITION PERMITS. REDISTRIBUTE PRESSURE UTILIZING PILLOWS AND WEDGES. CONTINUATION WITH PREVIOUSLY ORDERED WOUND CARE INTERVENTIONS PRESCRIBED BY MD. CONTINUE SKIN/WOUND CARE PLAN. CONTINUED MONITORING BY WOUND CARE TEAM.
--- NOTE | 2020-06-29 10:29 | NUR ---
PHONE CALL RECEIVED FROM DAUGHTER RUFUS REGARDING UPDATE ON MOTHERS CONDITION. INFORMED DAUGHTER PATIENT HAD A MENTAL STATUS CHANGE. INFORMED DAUGHTER PATIENT IS BEING CLOSELY MONITORED FOR BLOOD PRESSURE AND HEART RATE CHANGES. WILL ASK DR. BURRIS TO CALL DAUGHTER TO GIVE AND UPDATE ON PATIENTS CONDITION.
[2020-06-29] MEDS: PANTOPRAZOLE 40 MG/10 ML VIAL INJ IV SCH ×2 (11:16→21:39)
[2020-06-29] MEDS: DOPamine 1600MCG/ML D5W 250 ML IV SCH (11:16)
[2020-06-29] MEDS: ENOXAPARIN SOD 40 MG/0.4 ML SYRINGE SC SCH (11:17)
--- NOTE | 2020-06-29 11:19 | NUR ---
MEDICATION REFUSAL PATIENT REFUSED LACTULOSE DUE TO FEELING THAT SHE CAN NOT SWALLOW MEDICATION. PATIENT REFUSED MULTIVITAMIN FOR THE SAME REASON. PATIENT WAS ABLE TO DRINK WATER AND SODA EARLIER THIS MORNING WITH NO COMPLAINS OF INABILITY TO SWALLOW. WILL PAGE DR. BURRIS TO NOTIFY OF PATIENTS C/O UNABLE TO SWALLOW MEDICATION. PATIENT HAS GOOD COUGH REFLEX, IS ABLE TO SWALLOW SALIVA, PATIENT DENIES SOB OR CHEST PAIN. PATIENT IS CONFUSED BUT IS ALERT TO NAME, AND SITUATION. WILL HOLD ALL ORAL INTAKES. WILL CONTINUE TO MONITOR PATIENT.
[2020-06-29] MEDS ORDERED: SODIUM CHLORIDE 0.9% 1,000 ML IV SCH (11:30)
--- NOTE | 2020-06-29 11:30 | NUR ---
DR. LAKHANI SPOKE TO DR. LAKHANI OF PATIENT REFUSAL FOR ORAL MEDICATIONS DUE TO PATIENT STATING SHE CAN NOT SWALLOW. PER DR. LAKHANI HOLD ORAL MEDICATIONS. DR. CORTEZ WILL BE PAGED TO CONSULT PATIENT TO DETERMINE ANY NEW POC. PATIENT WILL BE CONTINUED TO BE MONITORED.
[2020-06-29 11:57] LABS: Hemoglobin 11.1 g/dL (12.2-16.2)
[2020-06-29 12:00] LABS: Hematocrit 33.6 % (36.0-46.0); Mean Corpuscular Hemoglobin 34.9 pg (28.0-32.0); Mean Corpuscular Volume 105.6 fL (80.0-100.0); Platelet Count (auto) 118 10^3/uL (140-450); Red Blood Cells 3.18 10^6/uL (4.0-5.20); White Blood Cell 15.9 10^3/uL (4.4-10.8)
[2020-06-29] MEDS ORDERED: FUROSEMIDE 20 MG/2 ML VIAL IV ONE (12:00)
--- NOTE | 2020-06-29 12:00 | NUR ---
PATIENT REFUSED TO EAT LUNCH. PATIENT REFUSED TO DRINK ENSURE.
[2020-06-29 12:01] LABS: Albumin 1.3 g/dL (3.4-5.0); Bilirubin, Direct 17.8 mg/dL (0-0.2); Bilirubin, Total 20.6 mg/dL (0.2-1.0); Total Protein 4.8 g/dL (6.4-8.2)
[2020-06-29 12:11] LABS: INR 2.13 (0.9-1.15)
--- NOTE | 2020-06-29 12:15 | NUR ---
DR. DANA CORTEZ AT BEDSIDE FOR GI CONSULT. INFORMED DR. CORTEZ OF PATIENT MENTAL STATUS CHANGE WITH HALLUCINATIONS, BP TRENDING LOW AND HEART RATE INCREASE. WILL AWAIT NEW ORDERS. WILL CONTINUE TO MONITOR PATIENT.
[2020-06-29 12:33] LABS: Red Cell Distribution Width 22.5 % (11.8-14.3)
[2020-06-29 12:34] LABS: Basophils % (manual) 0 (0.0-2.0); Blast Cells 0; Promyelocytes % 0; Reactive Lymphocytes 0
[2020-06-29] MEDS ORDERED: prednisoLONE 15 MG/5 ML ORAL UD PO SCH (12:45)
[2020-06-29 12:59] VITALS: BP 90/49
[2020-06-29 13:24] LABS: Band Neutrophils % (manual) 1; Eosinophils % (manual) 1 (0-7); Lymphocytes % (manual) 7 (10.0-50.0); Metamyelocytes % 3; Monocytes % (manual) 2 (0-12); Myelocytes % 3
--- NOTE | 2020-06-29 14:45 | NUR ---
Nutrition Followup Note Wt 152.1 kg Pt`s confused with no family by bedside.pt with hallucinations. pt is currently on cardiac diet with ensure HP 1 carton tid. pt with poor PO of < 25% x 3 per RN doc Est energy needs [phone] kcal (11-14 kcal/kg BW 145.9kg) Est protein needs 43-58g (0.6-0.8g/kg IBW 73kg) Will monitor and reassess prn. Reassessed as pt now with elev ammonia\ Labs: BUN 22 H CREAT 1.20 H ZACARIAS 23.8 H ALB 1.6 L AMMONIA 44 H BM: Pt has no BM reported per RN doc Skin: BS 11 high risk, cellulitis full details in intensive care anaesthetist note PES: Obesity aeb pt with a BMI of 43.6kg/m2 r/t caloric intake in excess of needs Altered nutrition related labs aeb pt with elevated LFTs, hypoalb r/t chronic medical condition Comments: Will continue to monitor PO intake, skin status. F/u high 3-5 days Rec: 1) Consider hepatic diet 50 gm protein cardiac diet. 2) consider to D/C ensure HP as pt with elev ammonia. 3) continue current plan of care
[2020-06-29 16:48] VITALS: BP 82/64
[2020-06-29] MEDS: SUCRALFATE 1 GM/10 ML ORAL SUSP PO SCH ×2 (17:00→21:40)
[2020-06-29 17:04] LABS: BUN/Creatinine Ratio 12.8; Calcium 8.3 mg/dL (8.5-10.1); Potassium 4.3 mmol/L (3.5-5.1)
[2020-06-29] MEDS: ALBUMIN 25% 100 ML IV SCH (17:40)
--- NOTE | 2020-06-29 18:00 | NUR ---
PATIENT REFUSED TO EAT DINNER OR DRINK ENSURE. PATIENT WILL BE CONTINUED TO BE MONITORED.
[2020-06-29 22:00] VITALS: BP 74/49
--- NOTE | 2020-06-29 22:00 | NUR ---
Pt BP recorded as 74/49 HR 94. Hospitalist paged, awaiting call back.
[2020-06-29] MEDS ORDERED: ALBUMIN 5% 250 ML IV ONE (22:45)
[2020-06-30] VITALS (49 sets, daily range): BP systolic 53–110; BP diastolic 16–73
--- NOTE | 2020-06-30 | NUR ---
Pt refusing to turn, educated on the risks of not turning, pt still refused, will continue to monitor.
[2020-06-30] MEDS: ALBUMIN 25% 100 ML IV SCH ×3 (01:03→23:20)
[2020-06-30] MEDS: PIPERACILLIN-TAZOB 3.375GM 100 ML IV SCH ×3 (05:59→13:24)
[2020-06-30] MEDS: SUCRALFATE 1 GM/10 ML ORAL SUSP PO SCH ×4 (06:00→22:00)
[2020-06-30] MEDS: OCTREOTIDE ACETATE 100 MCG/ML VL SUBCUT SCH ×2 (06:00→14:48)
--- NOTE | 2020-06-30 06:05 | NUR ---
Pt urine output recorded as 20 ml dark brown urine over the past 12 hours. Will report to day RN.
[2020-06-30 07:11] LABS: Platelet Count (auto) 73 10^3/uL (140-450)
[2020-06-30 07:14] LABS: Hematocrit 30.6 % (36.0-46.0); Hemoglobin 10.1 g/dL (12.2-16.2); Mean Corpuscular Hemoglobin 35.2 pg (28.0-32.0); Mean Corpuscular Volume 106.9 fL (80.0-100.0); Red Blood Cells 2.87 10^6/uL (4.0-5.20); White Blood Cell 12.2 10^3/uL (4.4-10.8)
[2020-06-30 07:24] LABS: INR 2.38 (0.9-1.15)
[2020-06-30 07:31] LABS: Potassium 4.5 mmol/L (3.5-5.1)
[2020-06-30 07:37] LABS: Red Cell Distribution Width 22.4 % (11.8-14.3)
[2020-06-30 07:39] LABS: Basophils % (manual) 0 (0.0-2.0); Blast Cells 0; Eosinophils % (manual) 0 (0-7); Promyelocytes % 0; Reactive Lymphocytes 0
[2020-06-30] MEDS: Ensure HIGH Protein Chocolate 8oz Bottle PO SCH ×2 (08:00→12:00)
--- NOTE | 2020-06-30 08:00 | NUR ---
RECEIVED PATIENT ALERT AND ORIENTED X2, NOT IN DISTRESS, CLEAR LS IN BILATERAL UPPER AND DIMINISHED IN LOWER LUNG LOBES, RR=18 SAT=94%, DEEP BREATHING AND COUGHING ENCOURAGED, VERBALIZED UNDERSTANDING, SR R=96 ON TELE MONITOR, DENIED CP AND SOB AT THIS MOMENT, ABDOMEN SOFT AND ROUND WITH ACTIVE BS, LAST BM=06/28/20 REPORTED, TERAN CATH IN PLACE AND PATENT, DRAINING DARK BROWN URINE, GENERALIZED WEAKNESS AND NONE PITTING EDEMA NOTED, REFUSED POSITION CHANGE AND BACK AND SACRAL AREA ASSESSMENT, RADIAL AND PEDAL PULSES PALPABLE, CAP REFILL <3 SECONDS, DENIED PAIN, RESTING ON BED, HEAD OF BED ELEVATED, BED ON LOW POSITION, RAILS UP X2, CALL LIGHT ON REACH, WILL CONTINUE MONITORING.
[2020-06-30 08:07] LABS: Albumin 2.2 g/dL (3.4-5.0); BUN/Creatinine Ratio 12.4; Bilirubin, Total 23.7 mg/dL (0.2-1.0); Calcium 8.6 mg/dL (8.5-10.1); Magnesium 2.4 mg/dL (1.6-2.6); Total Protein 5.2 g/dL (6.4-8.2)
[2020-06-30 08:27] LABS: Band Neutrophils % (manual) 1; Lymphocytes % (manual) 11 (10.0-50.0); Metamyelocytes % 2; Monocytes % (manual) 6 (0-12); Myelocytes % 3
[2020-06-30] MEDS: PANTOPRAZOLE 40 MG/10 ML VIAL INJ IV SCH (09:13)
[2020-06-30] MEDS: LACTULOSE 20Gm/30ML SOLN PO SCH ×3 (09:13→22:00)
[2020-06-30] MEDS: MULTIPLE VITAMINS W/ MINERALS TAB PO SCH (09:14)
[2020-06-30] MEDS: ENOXAPARIN SOD 40 MG/0.4 ML SYRINGE SC SCH (09:15)
[2020-06-30] MEDS: ONDANSETRON HCL 4 MG/2 ML VIAL IV PRN (09:18)
--- NOTE | 2020-06-30 09:40 | NUR ---
RESTING ON BED, GAUGING AND C/O NAUSEA, ZOFRAN IV PRN WAS GIVEN ORDERED, BED BATH AND POSITION CHANGE PROVIDED, PATIENT REFUSED, RESTING ON BED, WILL CONTINUE MONITORING.
[2020-06-30] MEDS ORDERED: prednisoLONE 15 MG/5 ML ORAL UD PO SCH (10:00)
[2020-06-30] MEDS: rifAXIMin 550 MG TAB PO SCH ×2 (10:00→22:00)
[2020-06-30] MEDS ORDERED: PROMETHAZINE HCL 25 MG/ML 1ML IV PRN (10:30)
[2020-06-30] MEDS ORDERED: LORazepam 2MG/ML-1ML VIAL IV ONE (10:30)
--- NOTE | 2020-06-30 11:29 | NUR ---
C/O nausea, Phenergan IV PRN and Ativan IV x1 was given as ordered, went on bed to [facility], will continue follow up.
[2020-06-30] MEDS ORDERED: MIDODRINE HCL 10 MG TAB PO SCH (12:00)
--- NOTE | 2020-06-30 12:00 | NUR ---
CODE ASSIST Code Assist note. Patient determined to be at high risk for Code Blue due to respiratory status and aloc. Code assist called. PATIENT LYING IN RADIOLOGY HALLWAY WHEN NOTED TO BE COUGHING/CHOKING, RESP GURGLING - SUCTIONED OF SM-MOD AMT THICK YELLOW SECRETIONS PER PORTABLE SUCTION MACHINE. SAO2 94% ON 4L O2 PER NC. LUNGS WITH RHONCHI BILAT. RESP SHALLOW AND SL LABORED. AUTOMOTIVE PARTS COUNTER PERSON UNABLE TO COUGH/GAG REFLEX WITH SUCTIONING AND MINIMAL EYES OPENING/VERBAL RESPONSE TO STERNAL RUB. HR 82. BP 112/70 IRIS SUAREZ HOUSE SUP, RUTH RT AND PINA SUAREZ (ER) PRESENT. IRIS ABLE TO ELEICIT INCREASED VERBALIZATION/MOVEMENT OF EXTREMITIES AFTER APPROX MINUTES WITH STERNAL RUB. PATIENT TRANSPORTED TO ROOM 296A PER BED WITH O2 ON AT 4L PER NC. REPORT GIVEN TO PATIENT'S RN TERRELL. IRIS SUAREZ AND RUTH HENRY AT BEDSIDE.
[2020-06-30] MEDS ORDERED: PHYTONADIONE (VIT K)10 MG/ML 1ML VIAL SUBCUT ONE (12:15)
--- NOTE | 2020-06-30 12:30 | NUR ---
CAME BACK FROM NUCLEAR MED UNABLE TO LAY FLAT FOR HIDA SCAN REPORTED, LETHARGIC AND RESPOND TO NAME, VS T=98.4 RR=18 SAT=95% P=70 NF=363/60, RESTING ON BES, DR. BILLY WAS PAGED TO BE NOTIFIED AND FOLLOW UP, WAITING FOR CALL BACK.
--- NOTE | 2020-06-30 12:49 | NUR ---
PENDING TRANSFER TO [facility], SMOKING PIPE COATER WAS NOTIFIED, RESTING ON BED, WILL CONTINUE MONITORING.
--- NOTE | 2020-06-30 15:00 | NUR ---
[id number] SOUNDS, KEEP SUCTIONING, THIN CREAMY COLORED SUCTION NOTED, VS T=98.2 RR=20, SAT=92% P=100 OV=448/57, PENDING TRANSFER TO [facility], WILL CONTINUE MONITORING.
[2020-06-30] MEDS: DOPamine 1600MCG/ML D5W 250 ML IV SCH (15:05)
--- NOTE | 2020-06-30 16:13 | NUR ---
STRUGGLING AND ON DISTRESS, SAT=73% INCREASED O2 TO 8L DID NOT IMPROVE, RT WAS PAGED AND AND CAME, PUT ON MUSK SAT=86%, CODE ASSIST PAGED AND CAME, REPORT WAS GIVEN TO RAMOS THE RECEIVING NURSE IN [facility], PATIENT'S DAUGHTER RUFUS WAS CALLED ON [phone] NO RESPONSE LEFT A MESSAGE AND WAITING FOR CALL BACK.
--- NOTE | 2020-06-30 16:18 | NUR ---
1515 06/30/20 - Faxed to [facility] transfer center at [phone], face sheet, order to transfer to higher level of care for liver failure, transfer via critical care protocol to a [facility] bed, H/P, labs, meds,GI consult,nephrology consult. Pending review and bed availability.
--- NOTE | 2020-06-30 16:30 | NUR ---
PATIENT TRANSFERRED TO [facility].
[2020-06-30] MEDS ORDERED: ETOMIDATE (2MG/ML) 20ML VIAL IV ONE (16:33)
[2020-06-30] MEDS ORDERED: SUCCINYLCHOLINE CHLORIDE 20 MG/ML 10ML VIAL IV ONE (16:33)
--- NOTE | 2020-06-30 16:35 | NUR ---
RECEIVED PT FROM FLOOR. PT OBTUNDED, LABORED BREATHING RR MID 40'S . CONGESTED, CAN HEAR RALES WITHOUT A STETHOSCOPE. PT UNAROUSABLE TO SPEECH, MOANS TO PAINFUL STIMULI. I CALLED PT'S DAUGHTER TO SEE IF SHE WANTS PT TO BE INTUBATED.
--- NOTE | 2020-06-30 16:45 | NUR ---
PT'S DAUGHTER SHAUNA CALLED BACK JUST BEFORE PT GOT INTUBATED AND STATES " PT DOES HAVE A DNR BUT SHE STILL WISHER FOR PT TO BE INTUBATED. I NOTIFIED DR. TYSON OF PT'S DAUGHTERS WISHES.
[2020-06-30] MEDS ORDERED: MIDAZOLAM DRIP 50 mg/50mL 50 ML IV SCH (17:00)
[2020-06-30] MEDS ORDERED: FUROSEMIDE 40 MG/4 ML VIAL IV ONE (17:00)
[2020-06-30] MEDS ORDERED: NOREPINEPHRINE 8 MG/250ML KIT 250 ML IV SCH (17:00)
--- NOTE | 2020-06-30 17:00 | NUR ---
DR. BILLY CALL TO GET AN UPDATE ON P[T'S CONDITION.
--- NOTE | 2020-06-30 17:00 | NUR ---
Respiratory note: PATIENT INTUBATED BY Mila FRAZIER RRT ON FIRST ATTEMPT AT APPROX 1650 FOR IMPENDING RESPIRATORY FAILURE. SHE WAS INTUBATED WITH AN 8.0 ETT; POSITIVE COLOR CHANGE WAS SEEN ON CO2 DETECTOR, BILATERAL BREATH SOUNDS WERE HEARD, AND CONDENSATION WAS SEEN IN THE TUBE. ETT WAS SECURED VIA CHET AT THE 23CM MARKING AT THE LIP; AWAITING CXR FOR DEPTH CONFIRMATION. PATIENT WAS PLACED ON V4 V200 VENT WITH THE FOLLOWING SETTINGS: AC 14, 500, +5, 100% SPO2 94%, LUNG SOUNDS COARSE RHONCHI T/O, SMALL AMOUNT OF THICK CARSON SECRETIONS WHEN SUCTIONED. SPUTUM SAMPLE COLLECTED AND SENT TO LAB. VENT PLUGGED INTO RED OUTLET AND ALL ALARMS ARE SET AND AUDIBLE. WILL ENDORSE CARE TO NOC SHIFT RT.
--- NOTE | 2020-06-30 17:12 | NUR ---
CONSENT OBTAINED FROM PT'S DAUGHTER SHAUNA FOR CENTRAL LINE PLACEMENT.
--- NOTE | 2020-06-30 17:35 | NUR ---
NGT WAS GENTLY INSERTED ON PT'S NOSTRIL BY CHARGED RN, NO RESISTANCE WAS ENCOUNTERED, WHEN NGT WAS PLACED TO SUCTION, BRIGHT RED BLOOD SQUIRTED OUT. NGT WAS IMMEDIATELY PULLED OUT. PRESSURE WAS APPLIED TO NOSE, NOSE WAS SUCTIONED AND THEN BLOOD WAS NOTED TO BE COMING OUT FROM PT'S MOUTH. DR. TYSON WAS INSERTING A CENTRAL LINE AT THE SAME TIME. HE ORDERED STAT FFP. I CALLED BLOOD BANK TO REQUEST STAT TYPE AND MATCH.
--- NOTE | 2020-06-30 18:00 | NUR ---
DEMETRA GTZ AT BEDSIDE TO ASSESS PT. NEW ORDERS RECEIVED. STAT LABS DRAWN THROUGH CENTRAL LINE . ALL PRESSORS MAXED OUT TO SUSTAIN SBP ADOBE 90. NS AT 1000 ML/HR. DR TYSON ROUNDYURI CHECKING ON PT FOR A 2ND TIME. DEMETRA GTZ CALLED AND UPDATED PT'S DAUGHTER JAKE ON PT'S CONDITION. AT THAT TIME DR BILLY CALLED TO GET UPDATED.
--- NOTE | 2020-06-30 18:01 | NUR ---
Respiratory note: RECEIVED PT ON VENT V4, VENT CONNECTED TO RED OUTLET AND O2 SOURCE ALARMS ARE SET AND AUDIBLE. AMBU BAG AND MASK AT BEDSIDE. BS ARE COURSE T/O, SXD VIA ETT FOR MODERATE AMOUNT OF AYDEN BLOOD. PTS NOSE AND ORAL CAVITY BLEEDING NO BREAKDOWN OR SKIN TEARS NOTED. RN REINALDO AT BEDSIDE SUCTIONING PTS ORAL CAVITY FOR AYDEN BLOOD. PTS NOSE HAS BEEN PACKED BY RNS, WITH GAUZE TO PREVENT MORE BLOOD LOSS. WILL OBTAIN ABG. RT NAME AND PAGER ASSIGNMENT WRITTEN ON PTS ROOM BOARD.
[2020-06-30] MEDS ORDERED: SODIUM CHLORIDE 0.9% 1,000 ML IV ONE (18:30)
[2020-06-30 18:45] LABS: Hematocrit 26.4 % (36.0-46.0); Hemoglobin 8.9 g/dL (12.2-16.2); Mean Corpuscular Hemoglobin 36.7 pg (28.0-32.0); Mean Corpuscular Hgb Conc. 33.7 g/dL (32.0-36.0); Mean Corpuscular Volume 108.9 fL (80.0-100.0); Platelet Count (auto) 47 10^3/uL (140-450); Red Blood Cells 2.42 10^6/uL (4.0-5.20); White Blood Cell 10.8 10^3/uL (4.4-10.8)
[2020-06-30] MEDS ORDERED: PHENYLEPHRINE IV 250 ML IV ONE (18:45)
[2020-06-30 18:46] LABS: Red Cell Distribution Width 22.2 % (11.8-14.3)
[2020-06-30 18:47] LABS: Basophils % (manual) 0 (0.0-2.0); Blast Cells 0; Reactive Lymphocytes 0
[2020-06-30] MEDS ORDERED: SODIUM BICARBONATE 8.4 % INJ 50ML VIAL IV ONE ×2 (19:00→22:47)
[2020-06-30 19:06] LABS: Albumin 1.9 g/dL (3.4-5.0); BUN/Creatinine Ratio 10.8; Calcium 7.3 mg/dL (8.5-10.1); Potassium 5.2 mmol/L (3.5-5.1)
[2020-06-30] MEDS ORDERED: VASOPRESSIN 20 UNIT/ML ONE (19:09)
[2020-06-30 19:12] LABS: INR 2.82 (0.9-1.15)
[2020-06-30 19:15] LABS: Partial Thromboplastin Time 77.9 sec (23.0-31.2)
[2020-06-30] MEDS ORDERED: VASOPRESSIN 50 UNITS in D5W 5% 247.5 ML IV SCH (19:15)
[2020-06-30 19:17] LABS: Bilirubin, Total 23.2 mg/dL (0.2-1.0)
[2020-06-30 19:23] LABS: Band Neutrophils % (manual) 4; Eosinophils % (manual) 2 (0-7); Lymphocytes % (manual) 8 (10.0-50.0); Metamyelocytes % 3; Monocytes % (manual) 4 (0-12); Myelocytes % 1; Promyelocytes % 1
[2020-06-30] MEDS: PANTOPRAZOLE 40mg/50ML NS AE 50 ML IV SCH ×2 (19:40→23:50)
--- NOTE | 2020-06-30 20:12 | NUR ---
OPENING NOTE PUPILS ARE NOT EQUAL, OVAL SHAPE, BOTH 4 MM AND FIXED, NO ACCOMMODATION. DOES NOT RESPOND TO DEEP PAIN. NO GAG OR, VERY DIMINISHED COUGH. CURRENTLY PATIENT IS NOT ON ANY SEDATIONS. PATIENT IS BREATHING ABOVE VENTILATOR (RR 42), SPO2 97% (FIO2 100), ACTIVELY BLEEDING FROM MOUTH, STARTED TRANSFUSION OF ONE UNIT OF PRBC AND ONE FFP. HR SR 89, BP 88/35, WILL TITRATE VASOPRESSORS ACCORDINGLY, WILL CALL MD IF BP CONTINUES TO BE LOW. ALL VASOPRESSORS ARE INFUSING THROUGH RIGHT FEMORAL CENTRAL LINE.
--- NOTE | 2020-06-30 20:13 | NUR ---
Respiratory note: AT BEDSIDE FOR ROUTINE VENT CHECK. LAUREN MENDOZA AT BEDSIDE SUCTIONING AYDEN BLOOD FROM ORAL CAVITY. PT CONTINUES TO BLEED FROM ORAL CAVITY AND NOSE. NOSE AND MOUTH WHERE ALSO RE-PACKED BY RNS WITH GAUZE DUE TO EXCESSIVE BLEEDING. NO CHANGES MADE WILL CONTINUE TO MONITOR.
[2020-06-30] MEDS: PHENYLEPHRINE IV 250 ML IV SCH (21:15)
--- NOTE | 2020-06-30 21:30 | NUR ---
RUFUS STALLINGS (DAUGHTER AT BEDSIDE) DAUGHTER TOOK PATIENTS BELONGINGS, CELLPHONE, BONE CRUSHER, BLACK PURSE, SANDALS, CLOTHES.
--- NOTE | 2020-06-30 22:00 | NUR ---
HELD PO MEDICATIONS PATIENT INTUBATED, NO OG OR NG TUBE ACCESS, MD AWARE.
[2020-06-30] MEDS ORDERED: SODIUM BICARBONATE 8.4% INJ 50ML SYRINGE ONE (22:18)
--- NOTE | 2020-06-30 22:18 | NUR ---
SPOKE WITH DR BILLY RECEIVED NEW ORDERS
[2020-06-30] MEDS ORDERED: SODIUM BICARBONATE 50ML VIAL 150 ML in D5W/SOD CHL 0.45% 1,000 ML IV SCH (22:30)
[2020-06-30] MEDS ORDERED: DOPamine 1600MCG/ML D5W 250 ML IV ONE (22:38)
--- NOTE | 2020-06-30 23:55 | NUR ---
DNR RUFUS STALLINGS (DAUGHTER) REQUESTED DNR DAUGHTER STATED THAT HER MOTHER WOULD NOT WANT TO BE LIKE THIS. EDUCATED ON DNR, VERBALIZED UNDERSTANDING. DNR FORM SIGNS BY THOMAS MCCRARY
[2020-07-01] VITALS (18 sets, daily range): BP systolic 37–97; BP diastolic 18–59
[2020-07-01] MEDS ORDERED: DOPamine 1600MCG/ML D5W 250 ML IV SCH
[2020-07-01 00:11] LABS: BUN/Creatinine Ratio 10.6; Calcium 7.7 mg/dL (8.5-10.1)
[2020-07-01] MEDS: ALBUMIN 25% 100 ML IV SCH (00:15)
[2020-07-01 00:19] LABS: Potassium 5.8 mmol/L (3.5-5.1)
[2020-07-01 00:22] LABS: Bilirubin, Total 22.6 mg/dL (0.2-1.0); Total Protein 4.7 g/dL (6.4-8.2)
--- NOTE | 2020-07-01 00:33 | NUR ---
PAGED HOSPITALIST REGARDING CRITICAL VALUE
--- NOTE | 2020-07-01 00:48 | NUR ---
COMFORT MEASURES ONLY SPOKE WITH RUFUS STALLINGS (DAUGHTER), SHE WANT COMFORT MEASURES ONLY. PER RUFUS REQUEST NO NEW MEDICATIONS AND STOP CURRENTLY RUNNING DRIPS. SHE UNDERSTANDS THAT PATIENT WILL MOST LIKELY NOT MAKE THROUGH THE NIGHT WITHOUT CURRENT MEDICATIONS. RUFUS'S REQUEST WAS WITNESSED BY ME (ALLA SUAREZ) AND AMINA (CHARGE NURSE).
--- NOTE | 2020-07-01 00:50 | NUR ---
HOSPITALIST NOTIFIED OF FAMILY WISHES [employer] AWARE OF PATIENTS WISHES, STATUS CODE SHEET SIGNED AND COMFORT MEDICATIONS ORDERED PER FAMILY REQUEST.
[2020-07-01] MEDS ORDERED: ONDANSETRON HCL 4 MG/2 ML VIAL IV PRN (01:45)
[2020-07-01] MEDS ORDERED: LORazepam 2MG/ML-1ML VIAL IV PRN (01:45)
[2020-07-01] MEDS ORDERED: MORPHINE SULF INJ 2 MG/ML SYRINGE 1ML IV PRN (01:45)
--- NOTE | 2020-07-01 01:49 | NUR ---
COMFORT MEASURES ONLY SPOKE WITH RUFUS STALLINGS (DAUGHTER), SHE WANT COMFORT MEASURES ONLY. PER RUFUS REQUEST NO NEW MEDICATIONS AND STOP CURRENTLY RUNNING DRIPS. SHE UNDERSTANDS THAT PATIENT WILL MOST LIKELY NOT MAKE THROUGH THE NIGHT WITHOUT CURRENT MEDICATIONS. Addendum: 07/01/20 at 0158 by ALLA LEMUS RN WRONG TIME, ACTUAL TIME SPOKEN WITH RUFUS WAS 0048
[2020-07-01] MEDS: PHENYLEPHRINE IV 250 ML IV SCH (03:05)
[2020-07-01] MEDS: PANTOPRAZOLE 40mg/50ML NS AE 50 ML IV SCH (05:00)
[2020-07-01] MEDS: PIPERACILLIN-TAZOB 3.375GM 100 ML IV SCH (05:51)
[2020-07-01] MEDS: SUCRALFATE 1 GM/10 ML ORAL SUSP PO SCH (05:52)
[2020-07-01] MEDS: LACTULOSE 20Gm/30ML SOLN PO SCH (05:52)
--- NOTE | 2020-07-01 06:16 | NUR ---
PAGED HOSPITALIST TO PRONOUNCE PATIENT
--- NOTE | 2020-07-01 06:20 | NUR ---
CALLED [facility] CC: [id number] [facility] STATED THEY WILL CALL BACK IN ONE HOUR
--- NOTE | 2020-07-01 06:51 | NUR ---
FAMILY NOTIFIED OF PATIENT PASSING SPOKE WITH RUFUS (DAUGHTER) NOTIFIED HER THAT HER MOTHER HAS RINGS, EARING AND CHAIN. SHE STATED THAT SHE WILL PICK THOSE UP.
--- NOTE | 2020-07-01 06:54 | NUR ---
CALLED [facility]EW[facility] OLIVING MACHINE OPERATOR WAITING FOR THEIR CALL BACK
--- NOTE | 2020-07-01 07:12 | NUR ---
HOSPITALIST PRONOUNCED PATIENT'S AT 0617 HOSPITALIST: THOMAS MCCRARY
--- NOTE | 2020-07-01 07:31 | NUR ---
JUANITA CALLED BACK - BODY RELEASED - C# [id number] Addendum: 07/01/20 at 0734 by ALLA LEMUS RN JUANITA: DEPUTY MALCOLM WHITAKER
[2020-07-01] MEDS ORDERED: PHYTONADIONE (VIT K)10 MG/ML 1ML VIAL SUBCUT SCH (10:00)
--- NOTE | 2020-07-01 11:08 | NUR ---
Received report at 0725. Continued with post mortem care. Invasive Manager cleared for release. All medical tubes and catheters removed and bath given. Placed in body bag and remains in room 262, [facility]. Have contacted daughter, Latosha Leon and have spoken to her twice today. Mortuary arrangements made with [facility] in [place]. Communicated with Nicolasa ([facility]) and confirmed that arrangements have been made by Latosha Leon, daughter. Awaiting pick and shovel man. Personal belongings collected and bagged and awaiting daughter for pick and shovel man.
--- NOTE | 2020-07-01 15:09 | NUR ---
Concrete Stone Fabricator from [facility] arrived at 1430. Left unit at 1438. Latosha Leon came and pickle processor personal items as well.
== END 2020-07-01 14:33 | disposition expired | DRG 432 ==
LOC: EDBD 14:22 → ER 14:22 → TELE-WESTW 14:23 → DOU IN ICU 06-30 16:36
PROVIDERS: ADMIT Nurse Practitioner Family; ATTEND Internal Medicine
PROC: 0FB03ZX Excision of Liver, Percutaneous Approach, Diagnostic (ICD-10-PCS; 2020-06-26)
PROC: 30233K1 Transfusion of Nonautologous Frozen Plasma into Peripheral Vein, Percutaneous Approach (ICD-10-PCS; principal; 2020-06-30)
PROC: 5A1935Z Respiratory Ventilation, Less than 24 Consecutive Hours (ICD-10-PCS; 2020-06-30)
PROC: 0BH17EZ Insertion of Endotracheal Airway into Trachea, Via Natural or Artificial Opening (ICD-10-PCS; 2020-06-30)
PROC: 30233N1 Transfusion of Nonautologous Red Blood Cells into Peripheral Vein, Percutaneous Approach (ICD-10-PCS; 2020-06-30)
PROC: 30233R1 Transfusion of Nonautologous Platelets into Peripheral Vein, Percutaneous Approach (ICD-10-PCS; 2020-06-30)
PROC: 06HM33Z Insertion of Infusion Device into Right Femoral Vein, Percutaneous Approach (ICD-10-PCS; 2020-06-30)
PROC: 4A143B0 Monitoring of Venous Pressure, Central, Percutaneous Approach (ICD-10-PCS; 2020-06-30)
DX: K70.30 Alcoholic cirrhosis of liver without ascites (principal); N17.0 Acute kidney failure with tubular necrosis; K76.7 Hepatorenal syndrome; G93.41 Metabolic encephalopathy; J96.01 Acute respiratory failure with hypoxia; J69.0 Pneumonitis due to inhalation of food and vomit; A41.9 Sepsis, unspecified organism; E87.1 Hypo-osmolality and hyponatremia; E44.0 Moderate protein-calorie malnutrition; Z68.41 Body mass index [BMI] 40.0-44.9, adult; K72.90 Hepatic failure, unspecified without coma; K70.10 Alcoholic hepatitis without ascites; R16.0 Hepatomegaly, not elsewhere classified; E66.01 Morbid (severe) obesity due to excess calories; E88.09 Other disorders of plasma-protein metabolism, not elsewhere classified; E87.6 Hypokalemia; F17.210 Nicotine dependence, cigarettes, uncomplicated; F41.9 Anxiety disorder, unspecified; D25.9 Leiomyoma of uterus, unspecified; F32.9 Major depressive disorder, single episode, unspecified; F12.90 Cannabis use, unspecified, uncomplicated; K80.70 Calculus of gallbladder and bile duct without cholecystitis without obstruction; N18.9 Chronic kidney disease, unspecified; Z82.0 Family history of epilepsy and other diseases of the nervous system; Z98.84 Bariatric surgery status
CPT/HCPCS: 10022; 31500; 36415; 36600; 70450; 71045; 74150; 74176; 76705; 76775; 76830; 76856; 77012; 80048; 80053; 80061; 80076; 80320; 81001; 82140; 82150; 82248; 82306; 82390; 82570; 82805; 83540; 83550; 83690; 83735; 83880; 83970; 84100; 84132; 84156; 84300; 84443; 84484; 85007; 85025; 85027; 85610; 85730; 86038; 86704; 86706; 86708; 86803; 86850; 86900; 86901; 86920; 87040; 87070; 87077; 87086; 87186; 87205; 87340; 93005; 94002; 94003; 96361; 96374; 96375; 96376; 97110; 97530; C9113; G0378; J0330; J0696; J2250; J2405; J2543; J3430; J3490; J7060; J7510; P9047